=== PATIENT | female | born 1960 | race Caucasian/White ===

== ENCOUNTER 2018-07-01 02:27 | Emergency (ER) | payer OTHER ==
[2018-07-01 02:50] VITALS: BP 129/72
[2018-07-01] MEDS ORDERED: Atropine/Diphenoxylate 0.025-2.5 MG Tab PO ONE (03:18)
--- NOTE | 2018-07-01 03:25 | EDM.PDOC ---
ED HPI GENERAL MEDICAL PROBLEM - General Chief Complaint: Abdominal Pain Stated Complaint: STOMACH PAIN Time Seen by Provider: 07/01/18 03:15 Source of Information: Reports: Patient History Limitations: Reports: No Limitations - History of Present Illness INITIAL COMMENTS - FREE TEXT/NARRATIVE: This lady has had diarrhea off and on for the past week. Every time she eats she gets cramps and diarrhea described as watery. She hasn't seen doctor because she was better yesterday. History of RNY by Dr Cam. No nausea or vomiting. 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 below) Other Treatments HEAD BUTLER: Unknown middle abdomen Pain Score (Numeric/FACES): 3 - Related Data Allergies Allergy/AdvReac Type Severity Reaction Status Date / Time Penicillins Allergy Mild Rash Verified 07/01/18 02:45 steri strips Allergy Mild Blisters Uncoded 07/01/18 02:45 Home Meds: Home Meds Multivitamin with Minerals [Multiple Vitamin] 1 tab PO DAILY 08/07/13 [History] Calcium Citrate 200 mg PO BID 08/27/13 [History] Vitamin B Complex [B Complex] 1 each PO DAILY 08/27/13 [History] Ibuprofen [Motrin] 100 mg PO BEDTIME PRN 09/07/13 [History] Cyanocobalamin (Vitamin B-12) [Vitamin B-12] 1,000 mcg PO DAILY 02/18/16 [ History] Naltrexone HCl/Bupropion HCl [Contrave ER 8-90 mg Tablet] 1 each PO DAILY [History] Thiamine HCl [B-1] 100 mg PO DAILY 11/22/16 [History] Past Medical History HEENT History: Reports: Impaired Vision Respiratory History: Reports: Sleep Apnea, Other (See Below) Other Respiratory History: 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: Musculoskeletal History: Reports: RA Hematologic History: Reports: Anemia - Infectious Disease History Infectious Disease History: Reports: Chicken Pox, Shingles - Past Surgical History HEENT Surgical History: Reports: Oral Surgery GI Surgical History: Reports: Bariatric Procedure, Lysis of Adhesions Female Surgical History: Reports: Section Neurological Surgical History: Reports: Discectomy, Other (See Below) Other Neurological Surgeries/Procedures: herniated disc removal Social & Family History - Tobacco Use Smoking Status *Q: Never Smoker - Caffeine Use Caffeine Use: Reports: None - Recreational Drug Use Recreational Drug Use: No ED ROS GENERAL - Review of Systems Review Of Systems: ROS reveals no pertinent complaints other than HPI. ED EXAM, GI/ABD - Physical Exam Exam: See Below Exam Limited By: No Limitations General Appearance: Alert, WD/WN, No Apparent Distress Respiratory/Chest: No Respiratory Distress, Normal Breath Sounds Cardiovascular: Regular Rate, Rhythm, No Murmur GI/Abdominal Exam: Normal Bowel Sounds, Soft, Non-Tender Extremities: Normal Inspection Neurological: Alert, Normal Cognition Psychiatric: Normal Affect Skin Exam: Warm, Dry Course - Vital Signs Last Recorded V/S: Last Vital Signs Temp 36.2 C 07/01/18 02:49 Pulse 71 07/01/18 02:49 Resp 15 07/01/18 02:49 BP 129/72 07/01/18 02:49 Pulse Ox 96 07/01/18 02:49 - Orders/Labs/Meds Meds: Medications Discontinued Medications Generic Name Dose Route Start Last Admin Trade Name Freq PRN Reason Stop Dose Admin Diphenoxylate HCl/Atropine 2 tab 07/01/18 03:18 07/01/18 03:23 Lomotil 0.025-2.5 Mg PO 07/01/18 03:19 2 tab ONETIME ONE Administration Departure - Departure Time of Disposition: 03:19 Disposition: Home, Self-Care 01 Condition: Fair Clinical Impression: Diarrhea, Abdominal pain - Discharge Information Instructions: Abdominal Pain, Adult, Diarrhea, Adult, [id number] Referrals: Tessy Sáncehz PA [Primary Care Provider] - Forms: ED Department Discharge Additional Instructions: For diarrhea and cramps you may use Lomotil, 2 tabs 4 times per day. (The medication Contrave contains Naltrexone that can partially block one of the components of Lomotil so continue to abstain from this drug while on Lomotil.) Lomotil contains a mild opiate that can cause sedation. If you prefer you may take Imodium AD instead of Lomotil. Yogurt may help the diarrhea. Clear liquids for 1 day may also help. See your doctor if no better by Tuesday or Tuesday.
== END 2018-07-01 03:31 | disposition home or self-care (01) ==
LOC: JP.ED 02:27
DX: R19.7 Diarrhea, unspecified (principal); Z88.0 Allergy status to penicillin
CPT/HCPCS: 99284; A9270

== ENCOUNTER 2021-08-23 09:41 | Emergency (ER) | payer OTHER ==
--- NOTE | 2021-08-23 12:17 | CRLCR ---
For Patients: As a result of the Century Cures Act, medical imaging exams and procedure reports are released immediately into your electronic medical record. You may view this report before your referring provider. If you have questions, please contact your health care provider. INDICATION: Fall. TECHNIQUE: Left wrist radiographs, 3 views. COMPARISON: None available. FINDINGS: Diffuse demineralization. Nondisplaced fracture traversing the distal radial metaphysis. No articular deformity or malalignment identified. Subtle lucency traversing the mid-distal scaphoid without appreciable cortical offset. No dislocation or displaced fracture. IMPRESSION: 1. Left radius distal metaphysis nondisplaced transverse fracture. 2. Subtle lucency traversing the mid-distal scaphoid, potentially artifactual/projectional though a nondisplaced fracture is possible. Consider repeat radiographs in 7-10 days. Dictated by Ibrahima Smith MD @ 08/23/2021 12:15:47 PM Dictated by: Ibrahima Smith MD @ 08/23/2021 12:15:51 (Electronically Signed)
--- NOTE | 2021-08-23 12:38 | EDM.PDOC ---
ED HPI GENERAL MEDICAL PROBLEM - General Chief Complaint: Upper Extremity Injury/Pain Stated Complaint: FELL HURT LEFT WRIST Time Seen by Provider: 08/23/21 12:25 Source of Information: Reports: Patient, Old Records, RN History Limitations: Reports: No Limitations - History of Present Illness INITIAL COMMENTS - FREE TEXT/NARRATIVE: 60 yo female fell today and injured her R wrist. No other injuries. Has seen Dr. Lowe in the past for orthopedic reasons. 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) (none) - Related Data Allergies Allergy/AdvReac Type Severity Reaction Status Date / Time Penicillins Allergy Mild Rash Verified 08/23/21 12:51 steri strips Allergy Mild Blisters Uncoded 08/23/21 12:51 Home Meds: Home Meds Multivitamin with Minerals [Multiple Vitamin] 1 tab PO DAILY 08/07/13 [History] Calcium Citrate 200 mg PO BID 08/27/13 [History] Vitamin B Complex [B Complex] 1 each PO DAILY 08/27/13 [History] Ibuprofen [Motrin] 100 mg PO BEDTIME PRN 09/07/13 [History] Cyanocobalamin (Vitamin B-12) [Vitamin B-12] 1,000 mcg PO DAILY 02/18/16 [History] Naltrexone HCl/Bupropion HCl [Contrave ER 8-90 mg Tablet] 1 each PO DAILY 11/22/16 [History] Thiamine HCl [B-1] 100 mg PO DAILY 11/22/16 [History] Acetaminophen/HYDROcodone [HYDROcodone-Acetaminophen 5-325 MG *] 1 - 2 tab PO Q6H PRN #16 each 08/23/21 [Rx] Past Medical History HEENT History: Reports: Impaired Vision Respiratory History: Reports: Sleep Apnea, Other (See Below) 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: Musculoskeletal History: Reports: RA Hematologic History: Reports: Anemia - Infectious Disease History Infectious Disease History: Reports: Chicken Pox, Shingles - Past Surgical History HEENT Surgical History: Reports: Oral Surgery GI Surgical History: Reports: Bariatric Procedure, Lysis of Adhesions Female Surgical History: Reports: Section Neurological Surgical History: Reports: Discectomy, Other (See Below) Other Neurological Surgeries/Procedures: herniated disc removal Social & Family History - Caffeine Use Caffeine Use: Reports: None Review of Systems - Review of Systems Review Of Systems: See Below Constitutional: Reports: No Symptoms Musculoskeletal: Reports: Joint Pain (R wrist) Skin: Reports: No Symptoms Neurological: Reports: No Symptoms ED EXAM, GENERAL - Physical Exam Exam: See Below Exam Limited By: No Limitations General Appearance: Alert, WD/WN, No Apparent Distress Extremities: Pedal Edema (R wrist radial side slight swelling), Joint Swelling (R wrist), Limited Range of Motion (due to pain of wrist R). No: Normal Inspection, Normal Range of Motion, Non-Tender, No Pedal Edema, Increased Warmth, Redness Neurological: Alert, Oriented, CN II-XII Intact, Normal Cognition, No Motor/Sensory Deficits Psychiatric: Normal Affect, Normal Mood Skin Exam: Warm, Dry, Intact, Normal Color, No Rash Course - Vital Signs Last Recorded V/S: Last Vital Signs Temp 36.8 C 08/23/21 12:49 Pulse 65 08/23/21 12:49 Resp 18 08/23/21 12:49 BP Pulse Ox 100 08/23/21 12:49 - Radiology Interpretation Free Text/Narrative:: L wrist [id number]-displaced fx of the distal radius - Re-Assessments/Exams Free Text/Narrative Re-Assessment/Exam: 08/23/21 12:52 Sugar-Tong splint applied to L arm. Sling given. Departure - Departure Time of Disposition: 13:00 Disposition: Home, Self-Care 01 Condition: Fair Clinical Impression: Fracture of right distal radius Qualifiers: Encounter type: initial encounter Fracture type: closed Fracture morphology: unspecified fracture morphology Qualified Code(s): S52.501A - Unspecified fracture of the lower end of right radius, initial encounter for closed fracture - Discharge Information *PRESCRIPTION DRUG MONITORING PROGRAM REVIEWED*: Yes *COPY OF PRESCRIPTION DRUG MONITORING REPORT IN PATIENT JAGUAR: Yes Prescriptions: Acetaminophen/HYDROcodone [HYDROcodone-Acetaminophen 5-325 MG *] 1 - 2 tab PO Q6H PRN #16 each PRN Reason: Pain Instructions: Wrist Fracture Treated With Immobilization, [id number] Referrals: Tessy Sánchez PA [Primary Care Provider] - Forms: ED Department Discharge Additional Instructions: Take ibuprofen 400 mg every 6 hrs with food for pain relief. Add either acetaminophen OR Canjilon for added relief. Wear your splint at all times. Keep your wrist elevated to reduce swelling. See Dr. Lowe later this week for definitive treatment. Sepsis Event Note (ED) - Focused Exam Vital Signs: Vital Signs Temp Pulse Resp Pulse Ox 08/23/21 12:49 36.8 C 65 18 100
[2021-08-23 12:56] VITALS: PULSE 65
== END 2021-08-23 13:18 | disposition home or self-care (01) ==
LOC: JP.ED 09:41
DX: S52.502A Unspecified fracture of the lower end of left radius, initial encounter for closed fracture (principal); S52.501A Unspecified fracture of the lower end of right radius, initial encounter for closed fracture; Z88.0 Allergy status to penicillin; Z91.048 Other nonmedicinal substance allergy status; W00.0XXA Fall on same level due to ice and snow, initial encounter
CPT/HCPCS: 29125; 73110-LT; 99283-25

== ENCOUNTER 2021-10-10 20:08 | Emergency (ER) | payer OTHER ==
[2021-10-10 20:37] VITALS: BP 141/81; PULSE 68
[2021-10-10] MEDS ORDERED: Ketorolac 30 MG/ML SDV IM ONE (20:51)
--- NOTE | 2021-10-10 21:13 | EDM.PDOC ---
ED HPI GENERAL MEDICAL PROBLEM - General Chief Complaint: Upper Extremity Injury/Pain Stated Complaint: WRIST PAIN Time Seen by Provider: 10/10/21 20:30 Source of Information: Reports: Patient History Limitations: Reports: No Limitations - History of Present Illness INITIAL COMMENTS - FREE TEXT/NARRATIVE: 61-year-old female who fell and broke her left wrist 6 weeks ago, at the cast removed recently and started physical therapy. Over the past couple days she has been doing band therapy for strengthening and now has developed intense shearing radiating pain down the dorsal aspect of the wrist especially with any movement. She also feels there is some swelling, she has not injured the wrist with falling or struck it against anything. She has taken a few of her pain pills from surgery which is helpful but she is concerned something serious is wrong. No redness, no rash, no elbow pain. Onset: Gradual Duration: Hour(s): (Symptoms developed over the past 12 hours) Location: Reports: Upper Extremity, Left Associated Symptoms: Reports: No Other Symptoms Right Ankle Pain Score (Numeric/FACES): 5 Left Lower Arm Pain Score (Numeric/FACES): 7 - Related Data Allergies Allergy/AdvReac Type Severity Reaction Status Date / Time Penicillins Allergy Mild Rash Verified 10/10/21 20:39 benzoin AdvReac Rash Verified 10/10/21 20:39 Home Meds: Home Meds Multivitamin with Minerals [Multiple Vitamin] 1 tab PO DAILY 08/07/13 [History] Calcium Citrate 200 mg PO BID 08/27/13 [History] Vitamin B Complex [B Complex] 1 each PO DAILY 08/27/13 [History] Ibuprofen [Motrin] 100 mg PO BEDTIME PRN 09/07/13 [History] Cyanocobalamin (Vitamin B-12) [Vitamin B-12] 1,000 mcg PO DAILY 02/18/16 [History] Naltrexone HCl/Bupropion HCl [Contrave ER 8-90 mg Tablet] 1 each PO DAILY 11/22/16 [History] Thiamine HCl [B-1] 100 mg PO DAILY 11/22/16 [History] Acetaminophen/HYDROcodone [HYDROcodone-Acetaminophen 5-325 MG *] 1 - 2 tab PO Q6H PRN #16 each 08/23/21 [Rx] Past Medical History HEENT History: Reports: Impaired Vision Respiratory History: Reports: Sleep Apnea, Other (See Below) 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 History: 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: Musculoskeletal History: Reports: RA Hematologic History: Reports: Anemia - Infectious Disease History Infectious Disease History: Reports: Chicken Pox, Shingles - Past Surgical History HEENT Surgical History: Reports: Oral Surgery GI Surgical History: Reports: Bariatric Procedure, Lysis of Adhesions Other GI Surgeries/Procedures: RNY 2013 Female Surgical History: Reports: Section Neurological Surgical History: Reports: Discectomy, Other (See Below) Other Neurological Surgeries/Procedures: herniated disc removal Musculoskeletal Surgical History: Reports: Other (See Below) Other Musculoskeletal Surgeries/Procedures:: Back surgery x2 Social & Family History - Tobacco Use Tobacco Use Status *Q: Never Tobacco User Second Hand Smoke Exposure: No - Caffeine Use Caffeine Use: Reports: None - Recreational Drug Use Recreational Drug Use: No Review of Systems - Review of Systems Review Of Systems: See Below Respiratory: Reports: No Symptoms Cardiovascular: Reports: No Symptoms Musculoskeletal: Reports: Other (Very sharp left wrist pain especially with mov ement) Skin: Denies: Bruising, Erythema Neurological: Denies: Paresthesia Psychiatric: Reports: No Symptoms ED EXAM, GENERAL - Physical Exam Exam: See Below Exam Limited By: No Limitations General Appearance: Alert, No Apparent Distress Head: Atraumatic Neck: Supple, Non-Tender Respiratory/Chest: No Respiratory Distress Extremities: Other (Exam is otherwise limited to the left hand. She has no significant swelling through the forearm wrist or hand. She has extremely intense pain with extension of the wrist which radiates up the forearm, it is also reproducible with supination and pronation) Neurological: Alert, Oriented Psychiatric: Normal Affect, Normal Mood Course - Vital Signs Last Recorded V/S: Last Vital Signs Temp 98.6 F 10/10/21 20:20 Pulse 68 10/10/21 20:20 Resp 16 10/10/21 20:20 BP 141/81 H 10/10/21 20:20 Pulse Ox 98 10/10/21 20:20 - Orders/Labs/Meds Orders: Active Orders 24 hr Category Date Time Status Wrist Comp Min 3V Lt [CR] Stat Exams 10/10/21 20:50 Taken Meds: Medications Discontinued Medications Generic Name Dose Route Start Last Admin Trade Name Freq PRN Reason Stop Dose Admin Ketorolac Tromethamine 30 mg 10/10/21 20:51 10/10/21 20:56 Ketorolac 30 Mg/Ml Sdv IM 10/10/21 20:52 30 mg ONETIME ONE Administration - Re-Assessments/Exams Free Text/Narrative Re-Assessment/Exam: 10/10/21 21:14 An x-ray of the left wrist was obtained that showed no new bony abnormalities. This likely is tendinitis secondary to increased activity of the left wrist. After 30 mg of IM Toradol prior to the x-ray, she had a small amount of relief but it was still very painful. She will be given 10 additional doses of hydrocodone to use for extra pain control and I encouraged her to not do any physical therapy for the rest of the weekend and wear her splint. She can recheck with orthopedics next week. Departure - Departure Time of Disposition: 21:17 Disposition: Home, Self-Care Clinical Impression: Left wrist tendinitis - Discharge Information Instructions: Tendinitis Referrals: Tessy Sánchez PA [Primary Care Provider] - Forms: ED Department Discharge Care Plan Goals: Wear splint for the next couple of days, avoid extra activity such as band therapy or physical therapy. A regular dose of anti-inflammatory such as ibuprofen or naproxen will be helpful and add stronger pain medication as needed. Recheck with orthopedics next week prior to restarting physical therapy. Sepsis Event Note (ED) - Evaluation Sepsis Screening Result: No Definite Risk - Focused Exam Vital Signs: Vital Signs Temp Pulse Resp BP Pulse Ox 10/10/21 20:20 98.6 F 68 16 141/81 H 98 - My Orders Last 24 Hours: My Active Orders 10/10/21 20:50 Wrist Comp Min 3V Lt [CR] Stat - Assessment/Plan Last 24 Hours: My Active Orders 10/10/21 20:50 Wrist Comp Min 3V Lt [CR] Stat
--- NOTE | 2021-10-12 09:30 | CR ---
Wrist Comp Min 3V Lt CLINICAL HISTORY: Fall FINDINGS: There is no acute fracture or dislocation within the left wrist. Patient has had a previous distal radial fracture seen on 08/23/2021. Impression: Old healed fracture distal radius No acute fracture or dislocation
== END 2021-10-10 21:26 | disposition home or self-care (01) ==
LOC: JP.ED 20:08
DX: M77.8 Other enthesopathies, not elsewhere classified (principal); Z88.0 Allergy status to penicillin; Z88.8 Allergy status to other drugs, medicaments and biological substances
CPT/HCPCS: 73110; 96372; 99283; J1885

== ENCOUNTER 2022-08-24 11:58 | Emergency (ER) | payer OTHER ==
[2022-08-24] MEDS ORDERED: Ketorolac 30 MG/ML SDV IM ONE (12:10)
[2022-08-24] MEDS ORDERED: HYDROmorphone 1 MG/ML Syringe IM ONE (12:12)
[2022-08-24] MEDS ORDERED: Sodium Chloride 0.9% 1,000 ML IV SCH (12:45)
[2022-08-24] MEDS ORDERED: Sodium Chloride 0.9% 10 ML Syringe FLUSH PRN (12:45)
[2022-08-24] MEDS ORDERED: Lidocaine 1% 5 ML VIAL INJECT ONE (13:01)
[2022-08-24] MEDS ORDERED: HYDROmorphone 0.5 MG/0.5 ML Syringe IVPUSH ONE (13:01)
[2022-08-24] MEDS ORDERED: Propofol 200 MG/20 ML SDV ONE (13:44)
[2022-08-24 14:42] VITALS: BP 145/74; PULSE 76
== END 2022-08-24 15:00 | disposition home or self-care (01) ==
LOC: JP.ED 11:58
DX: S52.501A Unspecified fracture of the lower end of right radius, initial encounter for closed fracture (principal); Z88.0 Allergy status to penicillin; Z88.8 Allergy status to other drugs, medicaments and biological substances; Z79.899 Other long term (current) drug therapy; W01.0XXA Fall on same level from slipping, tripping and stumbling without subsequent striking against object, initial encounter
CPT/HCPCS: 24655; 73100; 96361; 96372; 96374; 99283; J1170; J1885; J2704; J7030

== ENCOUNTER 2022-09-03 07:07 | Day surgery (SDC) | payer OTHER ==
[~2022-09-03 07:07] MED LIST: Bupivacaine 0.5% 30 ML SDV ONE
[2022-09-03] MEDS ORDERED: fentaNYL 250 MCG/5 ML SDV ONE ×2 (07:23→09:45)
[2022-09-03] MEDS ORDERED: Ondansetron 4 MG/2 ML SDV ONE (07:24)
[2022-09-03] MEDS ORDERED: Dexamethasone 4 MG/ML SDV ONE (07:24)
[2022-09-03] MEDS ORDERED: Propofol 200 MG/20 ML SDV ONE (07:24)
[2022-09-03 07:57] LABS: ESTIMATED GFR 85 mL/min (>60)
[2022-09-03] MEDS ORDERED: Lactated Ringers 1,000 ML IV SCH (08:15)
[2022-09-03] MEDS ORDERED: Nozin Nasal Sanitizer NASBOTH ONE (08:15)
[2022-09-03] MEDS ORDERED: Succinylcholine 200 MG/10 ML MDV ONE (08:48)
[2022-09-03] MEDS ORDERED: Neostigmine Methylsulfate 1 MG/ML 5 ML Syringe ONE (08:48)
[2022-09-03] MEDS ORDERED: Rocuronium 50 MG/5 ML Vial ONE (08:48)
[2022-09-03] MEDS ORDERED: Glycopyrrolate 0.2 MG/ML 5 ML MDV ONE (08:48)
[2022-09-03] MEDS ORDERED: ceFAZolin 1 GM Vial ONE (08:52)
[2022-09-03] MEDS ORDERED: Sodium Chloride 0.9% 10 ML ONE (08:52)
[2022-09-03] MEDS ORDERED: ceFAZolin 2 GM in Sodium Chloride 0.9% 50 ML IV ONE (09:00)
[2022-09-03] MEDS ORDERED: Morphine 2 MG/ML SYRINGE IVPUSH ONE ×2 (10:30→10:42)
[2022-09-03] MEDS ORDERED: hydrOXYzine HCL 100 MG/2 ML SDV IM ONE (10:42)
[2022-09-03] MEDS ORDERED: Acetaminophen/HYDROcodone 325-5 MG Tab PO PRN (11:17)
[2022-09-03 12:22] VITALS: PULSE 59
[2022-09-03 13:13] VITALS: BP 143/75
== END 2022-09-03 13:00 | disposition home or self-care (01) ==
LOC: JP.SDS 07:07
PROVIDERS: ATTEND Specialist
DX: S52.501A Unspecified fracture of the lower end of right radius, initial encounter for closed fracture (principal); G47.33 Obstructive sleep apnea (adult) (pediatric); E66.9 Obesity, unspecified; F32.A Depression, unspecified; Z68.32 Body mass index [BMI] 32.0-32.9, adult; Z88.0 Allergy status to penicillin; Z88.8 Allergy status to other drugs, medicaments and biological substances; Z79.899 Other long term (current) drug therapy; W19.XXXA Unspecified fall, initial encounter
CPT/HCPCS: 36415; 76000; 80053; 85027; A9270-GY; C1713; J0330; J0690; J1100; J2270; J2405; J2704; J2710; J3010; J3410; J3490; J7120

== ENCOUNTER 2023-02-21 07:28 | Day surgery (SDC) | payer OTHER ==
[2023-02-21 07:48] LABS: HEMATOCRIT 42.6 % (34.3-46.0); HEMOGLOBIN 13.6 g/dL (11.2-15.5); MEAN CORPUSCULAR HEMOGLOBIN 28.2 pg (31.6-35.5); MEAN CORPUSCULAR HGB CONC 31.9 g/dL (31.6-35.5); MEAN CORPUSCULAR VOLUME 88.2 fL (81.4-99.0); RED BLOOD CELL COUNT 4.83 M/uL (3.77-5.24); WHITE BLOOD CELL COUNT,WBC 4.6 K/uL (3.2-11.0)
[2023-02-21] MEDS ORDERED: Lactated Ringers 1,000 ML IV SCH (08:00)
[2023-02-21] MEDS ORDERED: Nozin Nasal Sanitizer NASBOTH ONE (08:00)
[2023-02-21 08:10] LABS: A/G RATIO 1.2 (1.2-2.2); ALANINE AMINOTRANSFERASE,ALT 26 U/L (12-78); ALBUMIN 3.6 g/dL (3.4-5.0); ALKALINE PHOSPHATASE 86 U/L (46-116); ANION GAP 7.1 mmol/L (5.0-14.0); ASPARTATE AMNIOTRANSFERASE,AST 25 U/L (15-37); BILIRUBIN TOTAL 0.5 mg/dL (0.2-1.0); BLOOD UREA NITROGEN,BUN 12 mg/dL (7-18); CALCIUM 8.7 mg/dL (8.5-10.1); CARBON DIOXIDE,CO2 28 mmol/L (21-32); CHLORIDE,CL 106 mmol/L (100-108); CREATININE 0.7 mg/dL (0.6-1.0); EST CRCL DRUG DOSING (CG) 83.11 mL/min; ESTIMATED GFR 99 mL/min (>60); GLUCOSE RANDOM 81 mg/dL (74-106); POTASSIUM,K 3.6 mmol/L (3.6-5.2); PROTEIN TOTAL,TP 6.6 g/dL (6.4-8.2); SODIUM,NA 141 mmol/L (140-148)
[2023-02-21] MEDS ORDERED: fentaNYL 250 MCG/5 ML SDV ONE ×2 (08:20→10:09)
[2023-02-21] MEDS ORDERED: Ondansetron 4 MG/2 ML SDV ONE (08:21)
[2023-02-21] MEDS ORDERED: Propofol 200 MG/20 ML SDV ONE (08:21)
[2023-02-21] MEDS ORDERED: Glycopyrrolate 0.2 MG/ML 5 ML MDV ONE (08:21)
[2023-02-21] MEDS ORDERED: Neostigmine Methylsulfate 1 MG/ML 5 ML Syringe ONE (08:21)
[2023-02-21] MEDS ORDERED: Rocuronium 50 MG/5 ML Vial ONE (08:21)
[2023-02-21] MEDS ORDERED: Dexamethasone 4 MG/ML SDV ONE (08:21)
[2023-02-21] MEDS ORDERED: ceFAZolin 1 GM in Sodium Chloride 0.9% 50 ML IV ONE (08:30)
[2023-02-21] MEDS ORDERED: ceFAZolin 1 GM in Premix Bag 1 BAG IV ONE (08:30)
[2023-02-21] MEDS ORDERED: Lactated Ringers 1,000 ML ONE (10:09)
[2023-02-21] MEDS ORDERED: fentaNYL 100 MCG/2 ML SDV ONE (11:19)
[2023-02-21] MEDS ORDERED: HYDROmorphone 1 MG/ML Syringe IVPUSH ONE ×2 (12:30→12:33)
[2023-02-21] MEDS ORDERED: Ketorolac 15 MG/ML SDV IVPUSH ONE (13:00)
[2023-02-21] MEDS ORDERED: Morphine 2 MG/ML SYRINGE IVPUSH ONE (13:15)
[2023-02-21] MEDS ORDERED: Acetaminophen/oxyCODONE 325-5 MG Tab PO PRN (14:00)
[2023-02-21 15:04] VITALS: BP 175/86; PULSE 62
== END 2023-02-21 15:24 | disposition home or self-care (01) ==
LOC: JP.SDS 07:28
PROVIDERS: ATTEND Specialist
DX: G56.21 Lesion of ulnar nerve, right upper limb (principal); G47.30 Sleep apnea, unspecified; F32.A Depression, unspecified; Z88.0 Allergy status to penicillin
CPT/HCPCS: 36415; 76000; 80053; 85027; A9270-GY; C1713; C1776; J0690; J1100; J1170; J1885; J2270; J2405; J2704; J2710; J3010; J3490; J7120